=== PATIENT | female | born 1970 | race Asian ===

== ENCOUNTER → 2017-01-04 | Outpatient (CLI) | payer BC | LOC: MC.RAD 10:20 | DX: Z12.31 Encounter for screening mammogram for malignant neoplasm of breast (principal) ==

== ENCOUNTER → 2017-01-16 | Outpatient (REF) | LOC: WSOH 11:10 | DX: Z02.89 Encounter for other administrative examinations (principal) ==

== ENCOUNTER → 2017-02-28 | Outpatient (REF) | LOC: WSOH 16:12 | DX: Z02.89 Encounter for other administrative examinations (principal) ==

== ENCOUNTER → 2018-02-06 | Outpatient (CLI) | payer BC | LOC: MC.RAD 12:58 | DX: Z12.31 Encounter for screening mammogram for malignant neoplasm of breast (principal) ==

== ENCOUNTER → 2019-02-11 | Outpatient (CLI) | payer BC | LOC: MC.RAD 08:28 | DX: Z12.31 Encounter for screening mammogram for malignant neoplasm of breast (principal) ==

== ENCOUNTER → 2020-02-13 | Outpatient (CLI) | payer BC | LOC: MC.RAD 07:11 | DX: Z12.31 Encounter for screening mammogram for malignant neoplasm of breast (principal) ==

== ENCOUNTER 2020-12-08 09:07 | Day surgery (SDC) | payer BC ==
[~2020-12-08] VITALS: Ht 172.7 cm; Wt 68.4 kg
[2020-12-08] MEDS ORDERED: ESTARYLLA 35 MC1 TAB PO (09:36)
[2020-12-08 09:58] VITALS: BP 115/59; PULSE 67; TEMP 98.2
[2020-12-08 10:45] VITALS: BP 108/63; PULSE 71; TEMP 97.5
--- NOTE | 2020-12-08 10:45 | NUR ---
PATIENT BROUGHT BACK TO [facility] VIA CART. AMBULATED TO CHAIR WITH ONE ASSIST. PLACED ON MONITORS, STABLE. REPORT RECIEVED FROM [facility]. PATIENT DENIES NAUSEA OR DISCOMFORT AT THIS TIME. REQUESTS WATER. WOULD JUST LIKE TO REST, CALL JIN WITHIN REACH. WILL CONTINUE TO MONITOR.
[2020-12-08 11:00] VITALS: BP 123/74; PULSE 69
--- NOTE | 2020-12-08 11:00 | NUR ---
PATIENT TOLERATING WATER WITHOUT DIFFICULTY. MD AT BEDSIDE TO SPEAK WITH PATIENT IN REGARDS TO RESULTS. VITAL SIGNS STABLE WILL MONITOR.
[2020-12-08 11:15] VITALS: BP 121/90; PULSE 61
--- NOTE | 2020-12-08 11:20 | NUR ---
PATIENT STATES SHE FEELS READY TO GO HOME AT THIS TIME. IV REMOVED, WITHOUT DIFFICULTY. VITAL SIGNS STABLE. DISCHARGE INSTRUCTIONS REVIEWED WITH PATIENT. PATIENT TO GET DRESSED AT THIS TIME.
--- NOTE | 2020-12-08 11:30 | NUR ---
PATIENT BROUGHT DOWN TO THE LOBBY VIA WHEEL CHAIR. DAUGHTER TO DRIVE PATIENT HOME. ALL BELONGINGS IN HAND.
== END 2020-12-08 11:30 | disposition home or self-care (01) ==
LOC: SDCO 09:07
DX: Z12.11 Encounter for screening for malignant neoplasm of colon (principal); K64.0 First degree hemorrhoids; K64.4 Residual hemorrhoidal skin tags; K59.00 Constipation, unspecified
CPT/HCPCS: J2704

== ENCOUNTER → 2021-06-15 | Outpatient (CLI) | payer BC ==
[~2021-06-15] MED LIST: ESTARYLLA 35 MC1 TAB PO
== END ==
LOC: MC.RAD 08:08
DX: Z12.31 Encounter for screening mammogram for malignant neoplasm of breast (principal)

== ENCOUNTER → 2023-07-04 | Outpatient (CLI) | payer BC | LOC: COL.RAD 09:05 | DX: M51.17 Intervertebral disc disorders with radiculopathy, lumbosacral region (principal) ==

== ENCOUNTER → 2023-10-31 | Outpatient (CLI) | payer OTHER | LOC: MC.RAD 08:55 | DX: Z12.31 Encounter for screening mammogram for malignant neoplasm of breast (principal) ==